=== PATIENT | female | born 1990 | race Caucasian/White ===

== ENCOUNTER → 2017-10-27 | Outpatient (CLI) | payer BC ==
--- NOTE | 2017-10-27 14:43 | Diagnostic Imaging Report ---
PROCEDURE:ABDOMINAL ULTRASOUND COMPARISON:[facility], ABDOMINAL ULTRASOUND, 04/29/2010, 11:57. INDICATIONS:Generalized abdominal pain TECHNIQUE:Lopez scale color Doppler ultrasound. FINDINGS: Imaged portions of the inferior vena cava and abdominal aorta are normal. Normal pancreatic head and proximal body. The tail is obscured by bowel gas. Right liver span 15 cm. Normal echogenicity with a smooth liver margin. Portal vein diameter 1 cm; normal flow direction. Small stone in the gallbladder. Wall thickness 2 mm. Common bile duct diameter 3 mm. Right kidney: 11.2 x 3.7 x 4.9 cm Left kidney: 11.2 x 4.4 x 5.2 cm Both kidneys are normal. Spleen length is 9.6 cm. No ascites. CONCLUSION: 1. Cholelithiasis without acute abnormality. 2. No interval change from April 2010. Dictated by: Jose Roberto Wan M.D. on 10/27/2017 at 14:53 Electronically approved by: Jose Roberto Wan M.D. on 10/27/2017 at 14:53
--- NOTE | 2017-10-27 16:08 | Diagnostic Imaging Report ---
PROCEDURE:PELVIC ULTRASOUND COMPARISON:None. INDICATIONS:GENERAL ABDOMEN PAIN TECHNIQUE: Grayscale transverse and sagittal transabdominal images were obtained of the pelvis. FINDINGS: 27 year old, A0. LMP 10/19/2017. UTERUS: Size measures 7.7 x 4.6 x 5.7 cm, within normal limits. Normal in orientation. No focal masses noted. Mild lobulated contour on the left may be related to previous reported myomectomy as a discrete fibroid is not visualized. ENDOMETRIUM: 1.2 cm, thicker than expected for early proliferative phase. Homogeneous without focal areas of thickening. RIGHT OVARY: 2.9 x 2.3 x 2.2 cm. No masses or cysts. LEFT OVARY: 3.9 x 2.3 x 2.5 cm. No masses or cysts. There is a small amount of free fluid within the pelvis. No adnexal masses. CONCLUSION: 1. No findings to explain abdominal pain. 2. Endometrium is thicker than expected for early proliferative phase based on LMP. Consider follow up ultrasound in 8-12 weeks. Dictated by: Jose Felder M.D. on 10/27/2017 at 16:17 Electronically approved by: Jose Felder M.D. on 10/27/2017 at 16:17
== END ==
LOC: US 13:39
PROVIDERS: ATTEND Internal Medicine
DX: R10.84 Generalized abdominal pain (principal)
CPT/HCPCS: 76700; 76856

== ENCOUNTER → 2017-11-18 | Day surgery (SDC) | payer BC ==
[2017-11-15 16:00] LABS: BASOPHILS % 0.2 % (0.0-1.0); EOSINOPHILS # (AUTO) 0.1 (0.0-0.4); EOSINOPHILS % 1.7 % (0.0-6.0); HEMATOCRIT 40.8 % (34.2-44.1); LYMPHOCYTES # (AUTO) 2.1 (1.0-3.2); LYMPHOCYTES % 25.6 % (18.0-39.1); MEAN CORPUSCULAR HEMOGLOBIN 31.8 pg (28-32); MEAN CORPUSCULAR HGB CONC 34.3 g/dL (31-35); MEAN CORPUSCULAR VOLUME 92.7 fL (81-99); MONOCYTES # (AUTO) 0.7 (0.2-0.8); MONOCYTES % 8.8 % (4.4-11.3); NEUTROPHILS # (AUTO) 5.1 (2.1-6.9); NEUTROPHILS % 63.5 % (38.7-80.0); PLATELET COUNT 280 x10e3/uL (140-360); RED CELL DISTRIBUTION WIDTH 12.2 % (11.7-14.4)
[2017-11-15 16:22] LABS: ALANINE AMINOTRANSFERASE 12 IU/L (0-55); ALBUMIN 4.1 g/dL (3.5-5.0); ALBUMIN/GLOBULIN RATIO 1.3 (0.8-2.0); ALKALINE PHOSPHATASE 90 IU/L (40-150); ANION GAP 10.9 mmol/L (8-16); BLOOD UREA NITROGEN 13 mg/dL (7-26); BUN/CREATININE RATIO 16 (6-25); CALCIUM 8.7 mg/dL (8.4-10.2); CARBON DIOXIDE 27 mmol/L (22-29); CHLORIDE 104 mmol/L (98-107); CREATININE, SERUM 0.79 mg/dL (0.57-1.11); EST GLOMERULAR FILTRATION RATE > 60 ML/MIN (60-); GLUCOSE 86 mg/dL (74-118); POTASSIUM 3.9 mmol/L (3.5-5.1); SODIUM 138 mmol/L (136-145)
[~2017-11-18] MED LIST: ACETAMINOPHEN 1000 MG/100 ML IV ONE; BUPIVACAINE 0.25% 30ML SDV INJ ONE; CEFAZOLIN SOD 2 GM/D5W 50ML 50 ML IV ONE; DEXAMETHASONE SOD PHOS INJ 4 MG/ML VIAL ONE; DIPHENHYDRAMINE HCL INJ 50 MG/ML VIAL ONE; FENTANYL CITRATE/PF 100MCG/2 ML INJ ONE; FENUGREEK500 MG PO; GLYCOPYRROLATE INJ 1MG/ 5 ML SYR ONE; LIDOCAINE HCL 2% LOCAL INJ 5 ML SDV VIAL INJ ONE; MIDAZOLAM HCL 2 MG/2 ML VIAL ONE; NEOSTIGMINE 5 MG/5ML SYR ONE; ONDANSETRON HCL INJ 2 MG/ML VIAL ONE; PROPOFOL IV EMULSION 10 MG/ML 20 ML VIAL ONE; ROCURONIUM BROMIDE 10 MG/ML 5ML VIAL ONE; SEVOFLURANE INHAL SOLN 250 ML PEN BTL ONE
--- OUTSIDE RECORDS SUMMARY | 2017-11-18 10:56 | XMS REPORT ---
Author Author [facility] Address Unknown Phone Unavailable Care Team Providers Care Pressroom Worker Name Role Phone MARCY CARSON Unavailable Unavailable Problems This patient has no known problems. Allergies, Adverse Reactions, Alerts This patient has no known allergies or adverse reactions. Medications This patient has no known medications. Results Test Description Test Time Test Comments Text Results Atomic Results Result Comments US ABDOMEN COMPLETE [facility] [address] [address] Patient Name: EVITA CAMP MR #: [id number] : 1990 Age/Sex: 27/F Req # : [id number] Adm Physician: Ordered by: MARCY CARSON MD Report #: [id number] Location: Room/Bed: Procedure: [id number] US/US ABDOMEN COMPLETE Exam Date: 10/27/17 Exam Time : 1352 REPORT STATUS: Signed PROCEDURE: ABDOMINAL ULTRASOUND COMPARISON: [facility], ABDOMINAL ULTRASOUND, 04/29/2010, 11: 57. INDICATIONS: Generalized abdominal pain TECHNIQUE: Lopez scale color Doppler ultrasound. FINDINGS: Imaged portions of the inferior vena cava and abdominal aorta are normal. Normal pancreatic head and proximal body. The tail is obscured by bowel gas. Right liver span 15 cm. Normal echogenicity with a smooth liver margin. Portal vein diameter 1 cm ; normal flow direction. Small stone in the gallbladder. Wall thickness 2 mm. Common bile duct diameter 3 mm. Right kidney: 11.2 x 3.7 x 4.9 cm Left kidney: 11.2 x 4.4 x 5.2 cm Both kidneys are normal. Spleen length is 9.6 cm. No ascites. CONCLUSION: 1. Cholelithiasis without acute abnormality. 2. No interval change from April 2010. Dictated by: Gillian Wan M.D. on 10/27/2017 at 14:53 Electronically approved by: Gillian Wan M.D. on 10/27/2017 at 14:53 Dictated By: GILLIAN WAN MD 52 Transcribed By: TALON on 10/27/171452 COPY TO: MARCY CARSON MD US PELVIS COMPLETE NON OB [address] [place] [address] Patient Name: EVITA CAMP MR #: [id number] : 1990 Age/Sex: 27/F Req #: [id number] Adm Physician: Ordered by: MARCY CARSON MD Report #: [id number] Location: US Room/Bed: Procedure: [id number] US/US PELVIS COMPLETE NON OB Exam Date: 10/27/17 Exam Time: 1450 REPORT STATUS: Signed PROCEDURE: PELVIC ULTRASOUND COMPARISON: None. INDICATIONS: GENERAL ABDOMEN PAIN TECHNIQUE: Grayscale transverse and sagittal transabdominal images were obtained of the pelvis. FINDINGS: 27 year old, A0. LMP 2017. UTERUS: Size measures 7.7 x 4.6 x 5.7 cm, within normal limits. Normal in orientation. No focal masses noted. Mild lobulated contour on the left may be related to previous reported myomectomy as a discrete fibroid is not visualized. ENDOMETRIUM: 1.2 cm, thicker than expected for early proliferative phase. Homogeneous without focal areas of thickening. RIGHT OVARY: 2.9 x 2.3 x 2.2 cm. No masses or cysts. LEFT OVARY: 3.9 x 2.3 x 2.5 cm. No masses or cysts. There is a small amount of free fluid within the pelvis. No adnexal masses. CONCLUSION: 1. No findings to explain abdominal pain. 2. Endometrium is thicker than expected for early proliferative phase based on LMP. Consider follow up ultrasound in 8-12 weeks. Dictated by: Jose Mayberry M.D. on 09/2017 at 16:17 Electronically approved by: Jose Mayberry M.D. on 10/27 at 16:17 Dictated By: JOSE MAYBERRY MD [id number] Transcribed By: TALON on 10/27/17 1617 COPY TO: MARCY CARSON MD
--- NOTE | 2017-11-18 15:07 | Operative Report ---
DATE OF PROCEDURE: November 18, 2017 PREOPERATIVE DIAGNOSES: Chronic cholecystitis and cholelithiasis. POSTOPERATIVE DIAGNOSES: Chronic cholecystitis and cholelithiasis. PROCEDURES PERFORMED: Diagnostic laparoscopy and laparoscopic cholecystectomy. [employer]: None. ANESTHESIA: General endotracheal. INDICATIONS AND FINDINGS: Patient is a 27-year-old female who has had recurrent episodes of epigastric abdominal pain. Workup revealed gallstones. Surgery based on gallbladder with adhesions involving omentum and duodenum over the neck and fundus of the gallbladder. Cystic duct was about 2 mm in diameter. Common bile duct was about 5 mm in diameter. Liver, stomach, and lower abdomen all appeared normal. TECHNIQUE: After adequate general endotracheal anesthesia with the patient in the supine position, the abdomen was prepped and draped in sterile fashion with James solution. Skin of the umbilicus was infiltrated with 0.5% Marcaine. Incision was made at the umbilicus. Abdominal wall was elevated and Veress needle was introduced. Pneumoperitoneum was then created. A 10-mm trocar and cannula was then passed through the umbilical wound. Laparoscopic camera was introduced. Initial laparoscopy revealed liver, stomach, and lower abdomen, all appeared normal. A 10-mm trocar and cannula was placed in the epigastrium and two 5-mm trocars and cannula were placed in the right upper quadrant. These were placed under direct vision. Fundus of the gallbladder was grasped and tracked superiorly. Neck of the gallbladder was grasped and retracted laterally. There were adhesions over the neck and fundus of the gallbladder involving omentum and duodenum. These were lysed staying close to the gallbladder. Peritoneum over the neck of the gallbladder was incised. The gallbladder and cystic duct junction was dissected free. Cystic artery was also dissected free. The neck of the gallbladder was completely dissected free. Cystic artery was divided between Hemoclips close to the gallbladder. Cystic duct was also divided between Hemoclips with 3 clips left on the common bile duct side. Gallbladder was dissected free from the liver using scissors and electrocautery. Once it was entirely free, it was placed into an Endo pouch and brought through the epigastric cannula. There were no definite stones palpable. Gallbladder bed was inspected for hemostasis, which was seen to be adequate. It was irrigated with saline. All fluid aspirated and inspected for hemostasis, which was seen to be adequate. Instruments and cannulas were then removed. Pneumoperitoneum was evacuated. Wounds were then closed. Fascia in the umbilical and epigastrium was closed with 0 Vicryl. Skin to all wounds closed with 4-0 Vicryl in subcuticular fashion. Dermabond and sterile dressing were applied to each wound. Patient tolerated the procedure well. Estimated blood loss was 10 mL. There were no complications. All counts were correct. Patient was taken to the recovery room in satisfactory condition. Job#: [id number] VAS
== END | disposition home or self-care (01) ==
LOC: OR 10:53
PROVIDERS: ATTEND Surgery
DX: K80.10 Calculus of gallbladder with chronic cholecystitis without obstruction (principal); K82.8 Other specified diseases of gallbladder; K21.9 Gastro-esophageal reflux disease without esophagitis; G43.909 Migraine, unspecified, not intractable, without status migrainosus; J45.909 Unspecified asthma, uncomplicated; Z01.812 Encounter for preprocedural laboratory examination
CPT/HCPCS: 36415; 47562; 80053; 84702; 85025; 88304; J2250; J2405; J1100; J1200; J2001

== ENCOUNTER 2018-09-12 01:45 | Emergency (ER) | payer BC ==
[~2018-09-12] VITALS: Ht 157.5 cm; Wt 79.4 kg
[~2018-09-12 01:45] MED LIST changes: -ACETAMINOPHEN 1000 MG/100 ML IV ONE; -BUPIVACAINE 0.25% 30ML SDV INJ ONE; -CEFAZOLIN SOD 2 GM/D5W 50ML 50 ML IV ONE; -DEXAMETHASONE SOD PHOS INJ 4 MG/ML VIAL ONE; -DIPHENHYDRAMINE HCL INJ 50 MG/ML VIAL ONE; -FENTANYL CITRATE/PF 100MCG/2 ML INJ ONE; -GLYCOPYRROLATE INJ 1MG/ 5 ML SYR ONE; -LIDOCAINE HCL 2% LOCAL INJ 5 ML SDV VIAL INJ ONE; -MIDAZOLAM HCL 2 MG/2 ML VIAL ONE; -NEOSTIGMINE 5 MG/5ML SYR ONE; -ONDANSETRON HCL INJ 2 MG/ML VIAL ONE; -PROPOFOL IV EMULSION 10 MG/ML 20 ML VIAL ONE; -ROCURONIUM BROMIDE 10 MG/ML 5ML VIAL ONE; -SEVOFLURANE INHAL SOLN 250 ML PEN BTL ONE
[2018-09-12] MEDS ORDERED: PANTOPRAZOLE 40 MG 10ML VIAL IV STA (02:12)
[2018-09-12] MEDS ORDERED: ONDANSETRON HCL INJ 2 MG/ML VIAL IV STA (02:12)
[2018-09-12] MEDS ORDERED: SODIUM CHLORIDE 0.9% 1000ML 1,000 ML IV ONE (02:15)
[2018-09-12 02:37] LABS: BASOPHILS % 0.3 % (0.0-1.0); EOSINOPHILS # (AUTO) 0.3 (0.0-0.4); EOSINOPHILS % 3.2 % (0.0-6.0); HEMATOCRIT 41.1 % (34.2-44.1); LYMPHOCYTES % 21.2 % (18.0-39.1); MEAN CORPUSCULAR HEMOGLOBIN 30.8 pg (28-32); MEAN CORPUSCULAR HGB CONC 34.1 g/dL (31-35); MEAN CORPUSCULAR VOLUME 90.5 fL (81-99); MONOCYTES # (AUTO) 0.8 (0.2-0.8); MONOCYTES % 8.7 % (4.4-11.3); NEUTROPHILS # (AUTO) 6.3 (2.1-6.9); PLATELET COUNT 333 x10e3/uL (140-360); RED BLOOD COUNT 4.54 x10e6/uL (3.6-5.1); RED CELL DISTRIBUTION WIDTH 12.8 % (11.7-14.4)
[2018-09-12 02:43] LABS: BILIRUBIN,URINE NEGATIVE (NEGATIVE); CLARITY,URINE CLEAR (CLEAR); COLOR,URINE YELLOW (YELLOW); KETONES,URINE NEGATIVE (NEGATIVE); LEUKOCYTE ESTERASE ,URINE NEGATIVE (NEGATIVE); NITRITE,URINE NEGATIVE (NEGATIVE); PREGNANCY TEST, URINE NEGATIVE (NEGATIVE); PROTEIN,URINE DIPSTICK NEGATIVE (NEGATIVE); URINE UROBILINOGEN 0.2 mg/dL (0.2 - 1)
[2018-09-12 02:51] LABS: BACTERIA,URINE MODERATE /HPF; EPITHELIAL CELLS,URINE FEW /LPF; MUCUS,URINE MANY (RARE)
[2018-09-12 02:53] LABS: ANION GAP 13.9 mmol/L (8-16); BLOOD UREA NITROGEN 15 mg/dL (7-26); CARBON DIOXIDE 27 mmol/L (22-29); CHLORIDE 101 mmol/L (98-107); CREATININE, SERUM 0.82 mg/dL (0.57-1.11); POTASSIUM 3.9 mmol/L (3.5-5.1); SODIUM 138 mmol/L (136-145)
[2018-09-12 02:54] LABS: ALANINE AMINOTRANSFERASE 34 IU/L (0-55); ALBUMIN 3.8 g/dL (3.5-5.0); ALBUMIN/GLOBULIN RATIO 1.2 (0.8-2.0); ALKALINE PHOSPHATASE 75 IU/L (40-150); AMYLASE 85 U/L (25-125); BUN/CREATININE RATIO 18 (6-25); CALCIUM 8.8 mg/dL (8.4-10.2); EST GLOMERULAR FILTRATION RATE > 60 ML/MIN (60-); GLUCOSE 100 mg/dL (74-118); LIPASE 62 U/L (8-78)
[2018-09-12 03:35] VITALS: BP 106/70
== END 2018-09-12 03:53 | disposition home or self-care (01) ==
LOC: ER 01:45
DX: R10.11 Right upper quadrant pain (principal); R11.2 Nausea with vomiting, unspecified; K29.00 Acute gastritis without bleeding
CPT/HCPCS: 36415; 80053; 81001; 81025; 82150; 83690; 85025; 96374; 96375; 99283; J2405; J7030

== ENCOUNTER → 2019-01-17 | Day surgery (SDC) | payer BC ==
[~2019-01-17] MED LIST changes: +FENTANYL CITRATE/PF 100MCG/2 ML INJ ONE; +MIDAZOLAM HCL 2 MG/2 ML VIAL ONE; +PROPOFOL IV EMULSION 10 MG/ML 50 ML VIAL ONE; +SERTRALINE HCL50 MG PO
[2019-01-17 12:00] VITALS: BP 100/75
== END | disposition home or self-care (01) ==
LOC: OR 06:52
PROVIDERS: ATTEND Internal Medicine Gastroenterology
DX: K21.0 Gastro-esophageal reflux disease with esophagitis (principal); K29.70 Gastritis, unspecified, without bleeding; K29.80 Duodenitis without bleeding; Z71.3 Dietary counseling and surveillance; K91.5 Postcholecystectomy syndrome; E66.9 Obesity, unspecified; J45.909 Unspecified asthma, uncomplicated; F32.9 Major depressive disorder, single episode, unspecified; Z68.33 Body mass index [BMI] 33.0-33.9, adult; Z87.891 Personal history of nicotine dependence
CPT/HCPCS: 43239; 81025; J2250; J2704; 43235

== ENCOUNTER → 2019-04-18 | Outpatient (CLI) | payer BC ==
[~2019-04-18] MED LIST changes: -FENTANYL CITRATE/PF 100MCG/2 ML INJ ONE; -MIDAZOLAM HCL 2 MG/2 ML VIAL ONE; -PROPOFOL IV EMULSION 10 MG/ML 50 ML VIAL ONE
--- NOTE | 2019-04-18 13:30 | Diagnostic Imaging Report ---
EXAM: US ABDOMEN COMPLETE DATE: 04/18/2019 10:55 AM INDICATION: Abdominal pain COMPARISON: None TECHNIQUE: Transverse and longitudinal arroyo scale and color doppler sonographic images of the upper abdomen were obtained. FINDINGS: There is no evidence of fluid or masses seen in the area of clinical concern in the right lower quadrant. LIVER 14.9 cm in the right midclavicular line. Normal echogenicity of the liver with normal contour, no masses. SPLEEN 10.6 cm in maximum diameter. Normal echogenicity, no masses. GALLBLADDER Status post cholecystectomy. BILE DUCTS No intra nor extra-hepatic biliary dilation. Common bile duct measures 0.3cm PANCREAS: Visualized portions are normal. RIGHT KIDNEY: 11.2 cm Echogenicity: Normal Collecting System: No hydronephrosis Stones: None Cyst/Mass: None LEFT KIDNEY: 11.1 cm Echogenicity: Normal Collecting System: No hydronephrosis Stones: None Cyst/Mass: None VESSELS: Aorta: Visualized portions are within normal size limits Inferior Vena Cava: Visualized portions are normal Main Portal Vein: 0.9 cm, normal size with hepatopetal flow. FREE FLUID: None IMPRESSION: Unremarkable abdominal ultrasound. Signed by: Mitch Lentz MD on 04/18/2019 1:27 PM
--- NOTE | 2019-04-18 13:32 | Diagnostic Imaging Report ---
Exam: Pelvic ultrasound. History: Pelvic pain, abdominal pain Comparison: Pelvic ultrasound of 10/27/2017 Findings: Transabdominal sonographic evaluation of the pelvis was performed. The uterus is anteverted in position, measuring 8.2 x 6.3 x 5.4cm. No fibroids are identified. Endometrial stripe thickness is 0.3 cm . The right ovary appears unremarkable, measuring3.8 x 2.4 x 3.4 cm. The left ovary appears unremarkable, measuring 3.2 x 1.7 x 2.6 cm. No pelvic free fluid. Impression: Unremarkable pelvic ultrasound. Signed by: Mitch Lentz MD on 04/18/2019 1:29 PM
== END ==
LOC: US 10:43
PROVIDERS: ATTEND Internal Medicine
DX: R10.31 Right lower quadrant pain (principal); R10.2 Pelvic and perineal pain
CPT/HCPCS: 76700; 76856

== ENCOUNTER → 2020-10-27 | Day surgery (SDC) | payer OTHER ==
[~2020-10-27] MED LIST changes: +LIDOCAINE HCL 2% LOCAL INJ 5 ML SDV VIAL INJ ONE; +PROPOFOL IV EMULSION 10 MG/ML 20 ML VIAL ONE
[2020-10-27 07:40] VITALS: BP 114/88
== END | disposition home or self-care (01) ==
LOC: ENDO 05:32
PROVIDERS: ATTEND Surgery
DX: K21.00 Gastro-esophageal reflux disease with esophagitis, without bleeding (principal); K44.9 Diaphragmatic hernia without obstruction or gangrene; I10 Essential (primary) hypertension; M26.609 Unspecified temporomandibular joint disorder, unspecified side; J45.990 Exercise induced bronchospasm; E66.01 Morbid (severe) obesity due to excess calories; Z01.812 Encounter for preprocedural laboratory examination; Z20.822 Contact with and (suspected) exposure to COVID-19; Z68.37 Body mass index [BMI] 37.0-37.9, adult
CPT/HCPCS: 43239; 81025; 88305; J2001; J2704; U0002

== ENCOUNTER 2020-11-17 09:00 | Inpatient (IN) | payer OTHER ==
[2020-11-14 16:16] LABS: BASOPHILS % 0.3 % (0.0-1.0); EOSINOPHILS # (AUTO) 0.2 (0.0-0.4); EOSINOPHILS % 2.5 % (0.0-6.0); HEMATOCRIT 40.4 % (34.2-44.1); HEMOGLOBIN 13.7 g/dL (12.0-16.0); LYMPHOCYTES # (AUTO) 1.8 (1.0-3.2); LYMPHOCYTES % 24.7 % (18.0-39.1); MEAN CORPUSCULAR HEMOGLOBIN 31.6 pg (28-32); MEAN CORPUSCULAR HGB CONC 33.9 g/dL (31-35); MEAN CORPUSCULAR VOLUME 93.1 fL (81-99); MONOCYTES # (AUTO) 0.6 (0.2-0.8); MONOCYTES % 8.5 % (4.4-11.3); NEUTROPHILS # (AUTO) 4.6 (2.1-6.9); NEUTROPHILS % 63.7 % (38.7-80.0); PLATELET COUNT 301 x10e3/uL (140-360); RED BLOOD COUNT 4.34 x10e6/uL (3.6-5.1); RED CELL DISTRIBUTION WIDTH 12.6 % (11.7-14.4)
[~2020-11-17] VITALS: Ht 154.9 cm; Wt 85.7 kg
[~2020-11-17 09:00] MED LIST changes: +BIOTIN5 M1; +CITALOPRAM HBR20 MG PO; -LIDOCAINE HCL 2% LOCAL INJ 5 ML SDV VIAL INJ ONE; +MULTI-VITAMIN1 EACH PO; +PANTOPRAZOLE SO40 MG PO; -PROPOFOL IV EMULSION 10 MG/ML 20 ML VIAL ONE; +VITAMIN C500 MG PO
[2020-11-17] MEDS ORDERED: CEFAZOLIN SOD 1 GM/NS 50ML 100 ML IV ONE (09:21)
[2020-11-17] MEDS ORDERED: BUPIVACAINE 0.25% 30ML SDV ONE (10:18)
[2020-11-17] MEDS ORDERED: PROPOFOL IV EMULSION 10 MG/ML 20 ML VIAL ONE (12:17)
[2020-11-17] MEDS ORDERED: ROCURONIUM BROMIDE 10 MG/ML 5ML VIAL IV ONE (12:17)
[2020-11-17] MEDS ORDERED: LIDOCAINE HCL 2% LOCAL INJ 5 ML SDV VIAL INJ ONE (12:17)
[2020-11-17] MEDS ORDERED: SEVOFLURANE INHAL SOLN 250 ML PEN BTL ONE (12:17)
[2020-11-17] MEDS ORDERED: NEOSTIGMINE 1 MG/ML 10ML VIAL ONE (12:17)
[2020-11-17] MEDS ORDERED: ONDANSETRON HCL INJ 2MG/ML 2ML 2 MG/ML VIAL ONE (12:17)
[2020-11-17] MEDS ORDERED: GLYCOPYRROLATE INJ 0.2 MG/ML VIAL ONE (12:17)
[2020-11-17] MEDS ORDERED: DEXAMETHASONE SOD PHOS INJ 4 MG/ML VIAL ONE (12:17)
[2020-11-17] MEDS ORDERED: KETOROLAC TROMETHAMINE 30 MG/ML VIAL ONE (12:17)
[2020-11-17] MEDS ORDERED: SCOPOLAMINE 1.5 MG PATCH TOP ONE (12:30)
[2020-11-17] MEDS ORDERED: HYDROCODONE/APAP 7.5MG-325MG 1 EA TAB PO PRN (12:30)
[2020-11-17] MEDS: ONDANSETRON HCL INJ 2MG/ML 2ML 2 MG/ML VIAL IV PRN ×2 (12:50→18:21)
[2020-11-17] MEDS ORDERED: FENTANYL CITRATE/PF 100MCG/2 ML INJ ONE ×2 (12:51→13:44)
[2020-11-17] MEDS ORDERED: METOCLOPRAMIDE HCL 10 MG/2ML VIAL ONE (13:08)
[2020-11-17 13:39] VITALS: BP 139/89
[2020-11-17] MEDS ORDERED: MIDAZOLAM HCL 2 MG/2 ML VIAL ONE (13:44)
[2020-11-17 14:00] VITALS: BP 139/89
[2020-11-17] MEDS: SODIUM CHLORIDE 0.9% 1000ML 1,000 ML IV SCH ×2 (14:09→20:40)
[2020-11-17] MEDS: MORPHINE SULFATE INJ 2 MG/ML SYR IV PRN ×4 (14:09→23:02)
[2020-11-17 15:01] LABS: BASOPHILS # (AUTO) 0.1 (0.0-0.1); BASOPHILS % 0.3 % (0.0-1.0); HEMATOCRIT 41.2 % (34.2-44.1); HEMOGLOBIN 14.1 g/dL (12.0-16.0); LYMPHOCYTES # (AUTO) 0.7 (1.0-3.2); LYMPHOCYTES % 3.5 % (18.0-39.1); MEAN CORPUSCULAR HEMOGLOBIN 31.3 pg (28-32); MEAN CORPUSCULAR HGB CONC 34.2 g/dL (31-35); MEAN CORPUSCULAR VOLUME 91.6 fL (81-99); MONOCYTES # (AUTO) 0.5 (0.2-0.8); MONOCYTES % 2.4 % (4.4-11.3); NEUTROPHILS # (AUTO) 18.4 (2.1-6.9); NEUTROPHILS % 93.3 % (38.7-80.0); PLATELET COUNT 323 x10e3/uL (140-360); RED CELL DISTRIBUTION WIDTH 12.1 % (11.7-14.4)
[2020-11-17] MEDS: ENOXAPARIN SOD INJ 40 MG/0.4 ML SYR SC SCH ×2 (15:35→17:00)
[2020-11-17 19:00] VITALS: BP 143/88
[2020-11-17 20:00] VITALS: BP 143/88
[2020-11-17] MEDS: SIMETHICONE 80 MG CHEW PO PRN (22:59)
[2020-11-18] VITALS: BP 128/80
[2020-11-18] MEDS: MORPHINE SULFATE INJ 2 MG/ML SYR IV PRN ×2 (01:53→05:16)
[2020-11-18 04:30] VITALS: BP 126/73
[2020-11-18] MEDS: SODIUM CHLORIDE 0.9% 1000ML 1,000 ML IV SCH (05:16)
[2020-11-18 05:18] LABS: BASOPHILS % 0.1 % (0.0-1.0); HEMATOCRIT 38.9 % (34.2-44.1); LYMPHOCYTES # (AUTO) 1.5 (1.0-3.2); LYMPHOCYTES % 13.4 % (18.0-39.1); MEAN CORPUSCULAR HEMOGLOBIN 31.6 pg (28-32); MEAN CORPUSCULAR HGB CONC 33.4 g/dL (31-35); MEAN CORPUSCULAR VOLUME 94.4 fL (81-99); MONOCYTES # (AUTO) 1.3 (0.2-0.8); MONOCYTES % 11.3 % (4.4-11.3); NEUTROPHILS # (AUTO) 8.6 (2.1-6.9); NEUTROPHILS % 74.9 % (38.7-80.0); PLATELET COUNT 313 x10e3/uL (140-360); RED BLOOD COUNT 4.12 x10e6/uL (3.6-5.1); RED CELL DISTRIBUTION WIDTH 12.3 % (11.7-14.4)
[2020-11-18 05:43] LABS: ALANINE AMINOTRANSFERASE 25 IU/L (0-55); ALBUMIN 3.6 g/dL (3.5-5.0); ALBUMIN/GLOBULIN RATIO 1.4 (0.8-2.0); ALKALINE PHOSPHATASE 66 IU/L (40-150); ANION GAP 12.2 mmol/L (8-16); BLOOD UREA NITROGEN 11 mg/dL (7-26); BUN/CREATININE RATIO 15 (6-25); CALCIUM 8.1 mg/dL (8.4-10.2); CARBON DIOXIDE 24 mmol/L (22-29); CHLORIDE 107 mmol/L (98-107); CREATININE, SERUM 0.73 mg/dL (0.57-1.11); EST GLOMERULAR FILTRATION RATE > 60 ML/MIN (60-); GLUCOSE 91 mg/dL (74-118); MAGNESIUM 1.9 MG/DL (1.3-2.1); PHOSPHORUS 2.6 MG/DL (2.3-4.7); POTASSIUM 4.2 mmol/L (3.5-5.1); SODIUM 139 mmol/L (136-145)
[2020-11-18 08:01] VITALS: BP 130/79
[2020-11-18 08:13] VITALS: BP 130/79
[2020-11-18] MEDS: SIMETHICONE 80 MG CHEW PO PRN (08:19)
[2020-11-18] MEDS ORDERED: CITALOPRAM HYDROBROMIDE 20 MG TAB PO SCH (09:00)
[2020-11-18] MEDS ORDERED: PANTOPRAZOLE SOD 40 MG TABEC PO SCH (09:00)
[2020-11-18] MEDS ORDERED: ONDANSETRON HCL 4 MG ORAL DISINTEGRATING TAB PO PRN (09:15)
== END 2020-11-18 09:33 | disposition home or self-care (01) | DRG 328 ==
LOC: OR 09:00 → PACU V 12:42 → MED/SURG 13:29
PROVIDERS: ADMIT Internal Medicine; ATTEND Internal Medicine
PROC: 0DB64Z3 Excision of Stomach, Percutaneous Endoscopic Approach, Vertical (ICD-10-PCS; principal; 2020-11-17 11:00)
PROC: 0BQT4ZZ Repair Diaphragm, Percutaneous Endoscopic Approach (ICD-10-PCS; 2020-11-17 11:00)
DX: K44.9 Diaphragmatic hernia without obstruction or gangrene (principal); E66.01 Morbid (severe) obesity due to excess calories; I10 Essential (primary) hypertension; Z20.822 Contact with and (suspected) exposure to COVID-19; K21.9 Gastro-esophageal reflux disease without esophagitis; F41.9 Anxiety disorder, unspecified; Z68.37 Body mass index [BMI] 37.0-37.9, adult
CPT/HCPCS: 36415; 80053; 81025; 83735; 84100; 85025; J0690; J1100; J1885; J2001; J2250; J2270; J2405; J2710; J2765; J3010; J7030; U0002